=== PATIENT | female | born 1980 | race Two or more races ===

== ENCOUNTER 2019-08-29 13:09 | Emergency (ER) | payer MEDICAID, OTHER ==
[~2019-08-29] VITALS: Ht 170.2 cm; Wt 122.9 kg
[2019-08-29 16:05] VITALS: BP 128/82
[2019-08-29] MEDS ORDERED: ACETAMINOPHEN/CODEINE#3 (300/30mg) TAB PO ONE (17:45)
== END 2019-08-29 18:00 | disposition home or self-care (01) ==
LOC: ER 13:16
DX: M25.462 Effusion, left knee (principal); E11.9 Type 2 diabetes mellitus without complications; I10 Essential (primary) hypertension; R51 Headache; Z98.51 Tubal ligation status
CPT/HCPCS: 73562

== ENCOUNTER 2022-01-30 04:54 | Emergency (ER) | payer MEDICAID ==
[~2022-01-30] VITALS: Ht 170.2 cm; Wt 86.4 kg
[2022-01-30] MEDS ORDERED: LORazepam 0.5 MG TAB PO ONE (05:45)
[2022-01-30 06:21] LABS: Basophils # (auto) 0 10 ^3/uL (0-0.2); Basophils % (auto) 0.5 % (0.0-2.0); Eosinophils # (auto) 0.1 10 ^3/uL (0-0.8); Hematocrit 43.7 % (36.0-46.0); Hemoglobin 14.7 g/dL (12.2-16.2); Lymphocytes # (auto) 2.5 10 ^3/uL (0.4-5.4); Lymphocytes % (auto) 34.2 % (10.0-50.0); Mean Corpuscular Hemoglobin 28.2 pg (28.0-32.0); Mean Corpuscular Hgb Conc. 33.6 g/dL (32.0-36.0); Monocytes # (auto) 0.3 10 ^3/uL (0-1.3); Monocytes % (auto) 3.5 % (0.0-12.0); Neutrophils # (auto) 4.4 10 ^3/uL (1.6-8.6); Neutrophils % (auto) 60.8 % (37.0-80.0); Red Cell Distribution Width 13.7 % (11.8-14.3); White Blood Cell 7.3 10^3/uL (4.4-10.8)
[2022-01-30 06:36] LABS: Albumin 2.8 g/dL (3.4-5.0); Calcium 8.8 mg/dL (8.5-10.1); Potassium 3.3 mmol/L (3.5-5.1)
[2022-01-30 06:41] LABS: BUN/Creatinine Ratio 16.9; Bilirubin, Total 0.4 mg/dL (0.2-1.0); Total Protein 6.8 g/dL (6.4-8.2)
[2022-01-30] MEDS ORDERED: HYDROmorphone HCL 2 MG/ML VL/or syr IV ONE (06:45)
[2022-01-30] MEDS ORDERED: PANTOPRAZOLE 40 MG TAB PO ONE (06:45)
[2022-01-30] MEDS ORDERED: PROCHLORPERAZINE EDISYLATE 5 MG/ML 2ML VIAL IV ONE (06:45)
[2022-01-30] MEDS ORDERED: DONNATAL 5ml ORAL Elix (BELLADONNA ALK-PHENOBARB) PO ONE (06:45)
[2022-01-30] MEDS ORDERED: ALUM & MAG HYDROX-SIMETH LIQ(MAALOX) 30 ML PO ONE (06:45)
[2022-01-30] MEDS ORDERED: IOHEXOL 300 MG/ML 100ML BOTTLE IJ ONE (06:55)
[2022-01-30 13:31] LABS: Urine Bacteria MANY /hpf (None Seen); Urine Blood Negative /uL (Negative); Urine WBC 65 /hpf (0 - 5)
[2022-01-30] MEDS ORDERED: INSULIN LISPRO (HUMAN) 100 UNITS/ML ML SC ONE (14:00)
[2022-01-30] MEDS ORDERED: cefTRIAXone 1GM/50ML D5W 50 ML IV ONE (14:00)
[2022-01-30] MEDS ORDERED: FLEET MINERAL OIL ENEMA 133 ML PR ONE (14:00)
[2022-01-30] MEDS ORDERED: POTASSIUM EFFERVESENT TAB 25 MEQ PO ONE (14:00)
[2022-01-30] MEDS ORDERED: SODIUM CHLORIDE 0.9% 1,000 ML IVB ONE (14:30)
[2022-01-30] MEDS ORDERED: GLIM1TAB PO (17:14)
[2022-01-30] MEDS ORDERED: METF-371 PO (17:14)
[2022-01-30] MEDS ORDERED: SENN1TAB88 PO (17:14)
[2022-01-30] MEDS ORDERED: SULF400T11 PO (17:14)
[2022-01-30] MEDS ORDERED: OLME20TA53 PO (17:14)
[2022-01-30 18:09] VITALS: BP 91/49
== END 2022-01-30 18:05 | disposition home or self-care (01) ==
LOC: EDBD 04:54 → ER 04:54
DX: N39.0 Urinary tract infection, site not specified (principal); K59.01 Slow transit constipation; E87.6 Hypokalemia; E11.65 Type 2 diabetes mellitus with hyperglycemia; E44.0 Moderate protein-calorie malnutrition; I10 Essential (primary) hypertension; Z68.29 Body mass index [BMI] 29.0-29.9, adult; Z98.51 Tubal ligation status
CPT/HCPCS: 36415; 71045; 74177; 80053; 81001; 81025; 83690; 83735; 84443; 84702; 85025; 96365; 96366; 96372; 96375; 99285; J0696; J0780; J1170; J1815; Q9967

== ENCOUNTER 2022-02-04 05:18 | Inpatient (IN) | payer MEDICAID ==
[2022-02-04] VITALS (8 sets, daily range): BP systolic 141–184; BP diastolic 86–100
[~2022-02-04] VITALS: Ht 167.6 cm; Wt 100.0 kg
[~2022-02-04 05:18] MED LIST: GLIM1TAB PO; METF-371 PO; OLME20TA53 PO; SENN1TAB88 PO; SULF400T11 PO
[2022-02-04 07:06] LABS: Albumin 2.4 g/dL (3.4-5.0); BUN/Creatinine Ratio 15.3; Basophils # (auto) 0 10 ^3/uL (0-0.2); Basophils % (auto) 0.3 % (0.0-2.0); Bilirubin, Total 0.5 mg/dL (0.2-1.0); Calcium 9.4 mg/dL (8.5-10.1); Eosinophils # (auto) 0.1 10 ^3/uL (0-0.8); Eosinophils % (auto) 0.4 % (0.0-7.0); Hemoglobin 14.8 g/dL (12.2-16.2); Lymphocytes % (auto) 7.5 % (10.0-50.0); Mean Corpuscular Hemoglobin 29.2 pg (28.0-32.0); Mean Corpuscular Hgb Conc. 34.4 g/dL (32.0-36.0); Mean Corpuscular Volume 84.9 fL (80.0-100.0); Monocytes # (auto) 0.9 10 ^3/uL (0-1.3); Monocytes % (auto) 6.2 % (0.0-12.0); Neutrophils % (auto) 85.6 % (37.0-80.0); Red Blood Cells 5.07 10^6/uL (4.0-5.20); Red Cell Distribution Width 14.1 % (11.8-14.3); Total Protein 7.8 g/dL (6.4-8.2)
[2022-02-04 08:42] LABS: Urine Bacteria NONE SEEN /hpf (None Seen); Urine Blood 3+ /uL (Negative); Urine Hyaline Cast MOD /lpf (0 - 2); Urine Specific Gravity 1.032 (1.001-1.035); Urine WBC 12 /hpf (0 - 5); Urine WBC Clumps PRESENT /hpf (None Seen)
[2022-02-04] MEDS ORDERED: SODIUM CHLORIDE 0.9% 1,000 ML IV ONE ×2 (10:45→13:45)
[2022-02-04] MEDS ORDERED: PIPERACILLIN-TAZOB 3.375GM 100 ML IV ONE (10:45)
[2022-02-04] MEDS ORDERED: ONDANSETRON HCL 4 MG/2 ML VIAL IV ONE (10:45)
[2022-02-04] MEDS ORDERED: metroNIDAZOLE 500MG/100ML 100 ML IV ONE (11:45)
[2022-02-04] MEDS ORDERED: cefTRIAXone 1GM/50ML D5W 50 ML IV ONE (11:45)
[2022-02-04] MEDS ORDERED: PANTOPRAZOLE 40 MG/10 ML VIAL INJ IV ONE (12:00)
[2022-02-04] MEDS: SODIUM CHLORIDE 0.9% 1,000 ML IV SCH ×4 (12:21→20:45)
[2022-02-04 12:59] LABS: INR 0.99 (0.9-1.15)
[2022-02-04 13:03] LABS: Cholesterol 175 mg/dL (< 200); HDL Cholesterol 30 mg/dL (40-59); LDL Cholesterol 123 mg/dL (< 100); Triglycerides 168 mg/dL (< 150)
[2022-02-04] MEDS ORDERED: InsuLIN REG 1unit/0.01ml Soln (100units/ml) IV ONE ×2 (13:45→15:30)
[2022-02-04] MEDS: metroNIDAZOLE 500MG/100ML 100 ML IV SCH ×2 (14:00→22:24)
[2022-02-04] MEDS ORDERED: GASTROGRAFIN 120 ML SOL ONE (14:19)
[2022-02-04 15:06] LABS: Albumin 2.3 g/dL (3.4-5.0); Calcium 9.2 mg/dL (8.5-10.1); Potassium 3.7 mmol/L (3.5-5.1)
[2022-02-04 15:09] LABS: BUN/Creatinine Ratio 18.5; Bilirubin, Total 0.4 mg/dL (0.2-1.0); Total Protein 7.4 g/dL (6.4-8.2)
[2022-02-04] MEDS: MORPHINE SULFATE INJ 2 MG/ml SYRG IV PRN ×2 (17:38→21:16)
[2022-02-04] MEDS ORDERED: DEXTROSE (50%) 50ML SYRG IV PRN ×2 (18:00→18:45)
[2022-02-04] MEDS ORDERED: ACCU-CHEK COMFORT CURVE STRIP VI SCH (18:00)
[2022-02-04] MEDS: InsuLIN REG 1unit/0.01ml Soln (100units/ml) SC SCH (18:22)
[2022-02-04] MEDS ORDERED: InsuLIN R (HUMAN) 100 UNITS in SODIUM CHL 0.9% 99 ML IV SCH (18:45)
[2022-02-04] MEDS: SOD CHL 0.9%/ KCL 20MEQ 1,000 ML IV SCH (18:45)
[2022-02-04] MEDS ORDERED: MAGNESIUM SULFATE 1GM/100ML 200 ML IV ONE (18:45)
[2022-02-04] MEDS ORDERED: INSULIN LANTUS (GLARGINE) 1 /0.01ml (100units/ml) SC ONE (18:45)
[2022-02-04] MEDS ORDERED: POTASSIUM CHL 20MEQ/100ML 200 ML IV PRN (18:45)
[2022-02-04] MEDS ORDERED: POTASSIUM CHL 20MEQ/100ML 100 ML IV PRN (18:45)
[2022-02-04] MEDS: hydrALAZINE HCL 20 MG/ML VL IV PRN (19:15)
[2022-02-04] MEDS: ACCU-CHEK COMFORT CURVE STRIP VI SCH ×3 (19:30→22:30)
[2022-02-04 20:03] LABS: Magnesium 1.8 mg/dL (1.6-2.6); Phosphorus 3.6 mg/dL (2.5-4.90)
[2022-02-04 20:04] LABS: BUN/Creatinine Ratio 21.6; Calcium 9.5 mg/dL (8.5-10.1); Potassium 3.7 mmol/L (3.5-5.1)
[2022-02-04] MEDS: ONDANSETRON HCL 4 MG/2 ML VIAL IV PRN (22:25)
[2022-02-04] MEDS ORDERED: SODIUM CHLORIDE 0.9% 1,000 ML IV SCH (22:45)
[2022-02-05] VITALS (47 sets, daily range): BP systolic 116–183; BP diastolic 73–121
[2022-02-05] MEDS: D5W/SOD CHL 0.45%/KCL 20MEQ 1,000 ML IV SCH ×10 (00:28→23:20)
[2022-02-05] MEDS: SODIUM CHLORIDE 0.9% 1,000 ML IV SCH ×7 (00:45→19:16)
[2022-02-05] MEDS: hydrALAZINE HCL 20 MG/ML VL IV PRN ×2 (00:45→12:02)
[2022-02-05] MEDS: SOD CHL 0.9%/ KCL 20MEQ 1,000 ML IV SCH ×3 (01:25→16:45)
[2022-02-05] MEDS: ACCU-CHEK COMFORT CURVE STRIP VI SCH ×15 (01:30→22:30)
[2022-02-05 01:38] LABS: Calcium 9.1 mg/dL (8.5-10.1); Potassium 3.5 mmol/L (3.5-5.1)
[2022-02-05] MEDS: MORPHINE SULFATE INJ 2 MG/ml SYRG IV PRN ×5 (02:07→20:08)
[2022-02-05 04:51] LABS: Basophils # (auto) 0.1 10 ^3/uL (0-0.2); Basophils % (auto) 0.7 % (0.0-2.0); Eosinophils # (auto) 0.1 10 ^3/uL (0-0.8); Eosinophils % (auto) 0.4 % (0.0-7.0); Hematocrit 43.6 % (36.0-46.0); Hemoglobin 14.2 g/dL (12.2-16.2); Lymphocytes # (auto) 1.3 10 ^3/uL (0.4-5.4); Lymphocytes % (auto) 9.2 % (10.0-50.0); Mean Corpuscular Hemoglobin 27.9 pg (28.0-32.0); Mean Corpuscular Hgb Conc. 32.6 g/dL (32.0-36.0); Mean Corpuscular Volume 85.5 fL (80.0-100.0); Monocytes # (auto) 0.8 10 ^3/uL (0-1.3); Monocytes % (auto) 5.6 % (0.0-12.0); Neutrophils # (auto) 11.7 10 ^3/uL (1.6-8.6); Neutrophils % (auto) 84.1 % (37.0-80.0); Red Blood Cells 5.09 10^6/uL (4.0-5.20); Red Cell Distribution Width 14.3 % (11.8-14.3); White Blood Cell 13.9 10^3/uL (4.4-10.8)
[2022-02-05 05:05] LABS: Albumin 2.3 g/dL (3.4-5.0); Potassium 3.8 mmol/L (3.5-5.1)
[2022-02-05 05:10] LABS: BUN/Creatinine Ratio 21.3; Bilirubin, Total 0.4 mg/dL (0.2-1.0); Total Protein 7.3 g/dL (6.4-8.2)
[2022-02-05] MEDS: InsuLIN REG 1unit/0.01ml Soln (100units/ml) SC SCH ×4 (06:00→15:59)
[2022-02-05] MEDS: metroNIDAZOLE 500MG/100ML 100 ML IV SCH ×3 (06:00→21:23)
[2022-02-05] MEDS: ONDANSETRON HCL 4 MG/2 ML VIAL IV PRN (07:30)
[2022-02-05] MEDS ORDERED: cefTRIAXone 1GM/50ML D5W 50 ML IV SCH (09:00)
[2022-02-05] MEDS: PANTOPRAZOLE 40 MG/10 ML VIAL INJ IV SCH (09:34)
[2022-02-05] MEDS ORDERED: SUCCINYLCHOLINE CHLORIDE 20 MG/ML 10ML VIAL IV ONE (10:18)
[2022-02-05] MEDS ORDERED: ROCURONIUM 10MG/ML 10ML VIAL IV ONE (10:18)
[2022-02-05] MEDS ORDERED: BUPIVACAINE 0.5% P/F INJ 10 ML VIAL ONE (10:20)
[2022-02-05] MEDS ORDERED: EPINEPHrine HCL 1 MG/1 ML AMP ONE (10:21)
[2022-02-05] MEDS ORDERED: ONDANSETRON HCL 4 MG/2 ML VIAL ONE (10:22)
[2022-02-05] MEDS ORDERED: DexAMETHasone SOD PHOS 10MG/1ML VIAL INJ ONE (10:22)
[2022-02-05] MEDS ORDERED: fentaNYL CITRATE 100 MCG/2 ML VL ONE (10:22)
[2022-02-05] MEDS: INSULIN LANTUS (GLARGINE) 1 /0.01ml (100units/ml) SC SCH (10:22)
[2022-02-05] MEDS ORDERED: GLYCOPYRROLATE 0.2 MG/ML 1ML VIAL ONE (10:22)
[2022-02-05] MEDS ORDERED: SODIUM CHLORIDE LOCK 10 ML ONE (10:22)
[2022-02-05] MEDS ORDERED: HYDROmorphone HCL 2 MG/ML VL/or syr ONE ×2 (10:22→15:13)
[2022-02-05] MEDS ORDERED: NEOSTIGMINE 1 MG/ML INJ (10mg/10ML VIAL) ONE (10:22)
[2022-02-05] MEDS ORDERED: MIDAZOLAM HCL 2MG/2ML 2ml VIAL (1mg/ml) ONE (10:22)
[2022-02-05] MEDS ORDERED: POVIDONE IODINE 10 % TOPICAL OINT 30GM TOP ONE ×2 (10:32→10:33)
[2022-02-05 12:07] LABS: Calcium 9.5 mg/dL (8.5-10.1); INR 1.03 (0.9-1.15); Partial Thromboplastin Time 26.8 sec (24.6-33.4); Potassium 3.3 mmol/L (3.5-5.1)
[2022-02-05 12:10] LABS: BUN/Creatinine Ratio 22.7
[2022-02-05] MEDS ORDERED: MORPHINE SULFATE 4 MG/ML SYR/VIAL IV PRN (12:15)
[2022-02-05] MEDS ORDERED: HYDROmorphone HCL 2 MG/ML VL/or syr IV PRN (12:15)
[2022-02-05] MEDS ORDERED: ACCU-CHEK COMFORT CURVE STRIP VI ONE (12:15)
[2022-02-05] MEDS ORDERED: METOCLOPRAMIDE HCL 5MG/ml INJ 2ml VIAL IV PRN (12:15)
[2022-02-05] MEDS ORDERED: ceFAZolin 1GM/50ML 100 ML IV ONE (12:25)
[2022-02-05] MEDS ORDERED: SUGAMMADEX 200mg/2ml Vial (100MG/ML) IV ONE (14:08)
[2022-02-05] MEDS ORDERED: HYDROmorphone HCL 2 MG/ML VL/or syr IV ONE ×2 (15:10→15:28)
[2022-02-05] MEDS: PIPERACILLIN-TAZOB 3.375GM 100 ML IV SCH ×2 (16:29→17:19)
[2022-02-05 17:16] LABS: BUN/Creatinine Ratio 18.6; Calcium 8.6 mg/dL (8.5-10.1); Magnesium 1.7 mg/dL (1.6-2.6); Phosphorus 2.7 mg/dL (2.5-4.90); Potassium 3.8 mmol/L (3.5-5.1)
[2022-02-05] MEDS: MAGNESIUM SULFATE 1GM/100ML 100 ML IV SCH ×2 (18:47→20:16)
[2022-02-05] MEDS ORDERED: DEXTROSE (50%) 50ML SYRG IV PRN (22:15)
[2022-02-05] MEDS ORDERED: InsuLIN R (HUMAN) 100 UNITS in SODIUM CHL 0.9% 99 ML IV SCH (22:30)
[2022-02-06] VITALS (47 sets, daily range): BP systolic 107–178; BP diastolic 73–100
[2022-02-06] MEDS: MORPHINE SULFATE 4 MG/ML SYR/VIAL IV PRN ×5 (00:02→22:38)
[2022-02-06 00:53] LABS: Anion Gap 10 (5-15); BUN/Creatinine Ratio 17.2; Blood Urea Nitrogen 10 mg/dL (7-18); Calcium 8.2 mg/dL (8.5-10.1); Carbon Dioxide 16 mmol/L (21-32); Chloride 114 mmol/L (98-107); GFR African American 149 mL/min; GFR Non-African American 123 mL/min; Glucose 251 mg/dL (74-106); Magnesium 2.1 mg/dL (1.6-2.6); Phosphorus 2.7 mg/dL (2.5-4.90); Potassium 3.6 mmol/L (3.5-5.1); Sodium 140 mmol/L (136-145)
[2022-02-06] MEDS: ACCU-CHEK COMFORT CURVE STRIP VI SCH ×16 (01:29→22:48)
[2022-02-06] MEDS: PIPERACILLIN-TAZOB 3.375GM 100 ML IV SCH ×4 (01:30→17:21)
[2022-02-06] MEDS: SOD CHL 0.9%/ KCL 20MEQ 1,000 ML IV SCH ×4 (01:31→07:45)
[2022-02-06] MEDS: D5W/SOD CHL 0.45%/KCL 20MEQ 1,000 ML IV SCH ×8 (01:36→22:00)
[2022-02-06] MEDS: SODIUM CHLORIDE 0.9% 1,000 ML IV SCH ×7 (03:25→23:25)
[2022-02-06] MEDS: metroNIDAZOLE 500MG/100ML 100 ML IV SCH ×3 (05:43→21:59)
[2022-02-06] MEDS: InsuLIN REG 1unit/0.01ml Soln (100units/ml) SC SCH ×5 (05:44→14:43)
[2022-02-06 06:45] LABS: BUN/Creatinine Ratio 17.2; Calcium 8.3 mg/dL (8.5-10.1); Magnesium 1.9 mg/dL (1.6-2.6); Potassium 3.4 mmol/L (3.5-5.1)
[2022-02-06 07:04] LABS: Phosphorus 2.8 mg/dL (2.5-4.90)
[2022-02-06] MEDS: PANTOPRAZOLE 40 MG/10 ML VIAL INJ IV SCH (07:59)
[2022-02-06] MEDS: INSULIN LANTUS (GLARGINE) 1 /0.01ml (100units/ml) SC SCH (10:33)
[2022-02-06 10:46] LABS: BUN/Creatinine Ratio 15.5; Calcium 8.6 mg/dL (8.5-10.1); Phosphorus 2.8 mg/dL (2.5-4.90); Potassium 3.5 mmol/L (3.5-5.1)
[2022-02-06] MEDS: ONDANSETRON HCL 4 MG/2 ML VIAL IV PRN (12:27)
[2022-02-06] MEDS: MAGNESIUM SULFATE 1GM/100ML 100 ML IV SCH ×2 (12:56→14:07)
[2022-02-06] MEDS: POTASSIUM CHL 20MEQ/100ML 100 ML IV SCH ×2 (13:03→14:23)
[2022-02-06] MEDS ORDERED: InsuLIN R (HUMAN) 100 UNITS in SODIUM CHL 0.9% 99 ML IV SCH (14:45)
[2022-02-06 20:30] LABS: Calcium 8.5 mg/dL (8.5-10.1); Magnesium 2.2 mg/dL (1.6-2.6); Potassium 3.6 mmol/L (3.5-5.1)
[2022-02-06 21:28] LABS: Phosphorus 2.5 mg/dL (2.5-4.90)
[2022-02-07] VITALS (27 sets, daily range): BP systolic 126–168; BP diastolic 81–112
[2022-02-07] MEDS: SOD CHL 0.9%/ KCL 20MEQ 1,000 ML IV SCH ×2 (00:05→06:45)
[2022-02-07] MEDS: D5W/SOD CHL 0.45%/KCL 20MEQ 1,000 ML IV SCH ×5 (00:05→15:59)
[2022-02-07] MEDS: PIPERACILLIN-TAZOB 3.375GM 100 ML IV SCH ×4 (00:15→17:48)
[2022-02-07] MEDS: ACCU-CHEK COMFORT CURVE STRIP VI SCH ×11 (00:18→17:48)
[2022-02-07] MEDS: ONDANSETRON HCL 4 MG/2 ML VIAL IV PRN ×2 (01:13→09:26)
[2022-02-07 01:26] LABS: BUN/Creatinine Ratio 12.2; Calcium 8.4 mg/dL (8.5-10.1); Phosphorus 2.3 mg/dL (2.5-4.90); Potassium 3.4 mmol/L (3.5-5.1)
[2022-02-07] MEDS: SODIUM CHLORIDE 0.9% 1,000 ML IV SCH ×2 (03:45→06:05)
[2022-02-07 04:40] LABS: Calcium 8.1 mg/dL (8.5-10.1); Potassium 3.3 mmol/L (3.5-5.1)
[2022-02-07 04:42] LABS: BUN/Creatinine Ratio 9.6; Phosphorus 2.5 mg/dL (2.5-4.90)
[2022-02-07] MEDS: metroNIDAZOLE 500MG/100ML 100 ML IV SCH ×3 (05:43→22:30)
[2022-02-07] MEDS: MORPHINE SULFATE 4 MG/ML SYR/VIAL IV PRN (05:54)
[2022-02-07] MEDS: InsuLIN REG 1unit/0.01ml Soln (100units/ml) SC SCH ×3 (06:00→18:13)
[2022-02-07] MEDS: HYDROmorphone HCL 2 MG/ML VL/or syr IV PRN ×4 (09:26→22:28)
[2022-02-07] MEDS: PANTOPRAZOLE 40 MG/10 ML VIAL INJ IV SCH (09:26)
[2022-02-07] MEDS ORDERED: InsuLIN R (HUMAN) 100 UNITS in SODIUM CHL 0.9% 99 ML IV SCH (09:30)
[2022-02-07] MEDS: INSULIN LANTUS (GLARGINE) 1 /0.01ml (100units/ml) SC SCH (12:02)
[2022-02-07 12:35] LABS: Calcium 8.3 mg/dL (8.5-10.1); Potassium 3.3 mmol/L (3.5-5.1)
[2022-02-07 12:38] LABS: BUN/Creatinine Ratio 7.8; Magnesium 1.9 mg/dL (1.6-2.6); Phosphorus 2.8 mg/dL (2.5-4.90)
[2022-02-07] MEDS ORDERED: DEXTROSE (50%) 50ML SYRG IV PRN (15:45)
[2022-02-07] MEDS: hydrALAZINE HCL 20 MG/ML VL IV PRN (20:47)
[2022-02-07 22:39] LABS: Calcium 8.2 mg/dL (8.5-10.1); Potassium 3.4 mmol/L (3.5-5.1)
[2022-02-07 22:42] LABS: BUN/Creatinine Ratio 8.7
[2022-02-08] VITALS (22 sets, daily range): BP systolic 126–151; BP diastolic 88–114
[2022-02-08] MEDS: PIPERACILLIN-TAZOB 3.375GM 100 ML IV SCH ×4 (01:00→18:48)
[2022-02-08] MEDS: ACCU-CHEK COMFORT CURVE STRIP VI SCH ×4 (01:00→18:48)
[2022-02-08] MEDS: InsuLIN REG 1unit/0.01ml Soln (100units/ml) SC SCH ×4 (01:04→18:55)
[2022-02-08] MEDS: HYDROmorphone HCL 2 MG/ML VL/or syr IV PRN ×5 (02:00→20:03)
[2022-02-08 04:15] LABS: Albumin 1.7 g/dL (3.4-5.0); Calcium 8.2 mg/dL (8.5-10.1); Magnesium 1.7 mg/dL (1.6-2.6); Potassium 3.4 mmol/L (3.5-5.1)
[2022-02-08 04:17] LABS: Basophils # (auto) 0 10 ^3/uL (0-0.2); Basophils % (auto) 0.4 % (0.0-2.0); Eosinophils # (auto) 0 10 ^3/uL (0-0.8); Eosinophils % (auto) 0.4 % (0.0-7.0); Hematocrit 37.2 % (36.0-46.0); Hemoglobin 12.7 g/dL (12.2-16.2); Lymphocytes # (auto) 1.5 10 ^3/uL (0.4-5.4); Lymphocytes % (auto) 14.4 % (10.0-50.0); Mean Corpuscular Hemoglobin 28.7 pg (28.0-32.0); Mean Corpuscular Hgb Conc. 34.1 g/dL (32.0-36.0); Mean Corpuscular Volume 84.1 fL (80.0-100.0); Monocytes # (auto) 0.5 10 ^3/uL (0-1.3); Monocytes % (auto) 4.9 % (0.0-12.0); Neutrophils # (auto) 8.4 10 ^3/uL (1.6-8.6); Neutrophils % (auto) 79.9 % (37.0-80.0); Nucleated Red Blood Cells % 0.1 %; Red Blood Cells 4.42 10^6/uL (4.0-5.20); Red Cell Distribution Width 14.1 % (11.8-14.3); White Blood Cell 10.5 10^3/uL (4.4-10.8)
[2022-02-08 04:18] LABS: BUN/Creatinine Ratio 10.4; Bilirubin, Total 0.2 mg/dL (0.2-1.0); Total Protein 6.1 g/dL (6.4-8.2)
[2022-02-08] MEDS: metroNIDAZOLE 500MG/100ML 100 ML IV SCH ×3 (06:04→22:01)
[2022-02-08] MEDS: PANTOPRAZOLE 40 MG/10 ML VIAL INJ IV SCH (10:18)
[2022-02-08] MEDS: D5W/SOD CHL 0.45%/KCL 20MEQ 1,000 ML IV SCH ×3 (10:24→22:01)
[2022-02-08] MEDS: POTASSIUM CHL 20MEQ/100ML 100 ML IV SCH ×2 (12:27→14:08)
[2022-02-09] MEDS: ACCU-CHEK COMFORT CURVE STRIP VI SCH ×4 (00:29→16:42)
[2022-02-09] MEDS: PIPERACILLIN-TAZOB 3.375GM 100 ML IV SCH ×4 (00:29→17:58)
[2022-02-09] MEDS: hydrALAZINE HCL 20 MG/ML VL IV PRN ×2 (00:32→12:42)
[2022-02-09] MEDS: InsuLIN REG 1unit/0.01ml Soln (100units/ml) SC SCH ×4 (00:34→17:11)
[2022-02-09] MEDS: HYDROmorphone HCL 2 MG/ML VL/or syr IV PRN ×5 (00:45→20:45)
[2022-02-09 05:00] VITALS: BP 139/102
[2022-02-09] MEDS: metroNIDAZOLE 500MG/100ML 100 ML IV SCH ×3 (05:45→21:58)
[2022-02-09] MEDS: D5W/SOD CHL 0.45%/KCL 20MEQ 1,000 ML IV SCH ×2 (07:45→16:41)
[2022-02-09 07:57] LABS: Basophils # (auto) 0 10 ^3/uL (0-0.2); Basophils % (auto) 0.4 % (0.0-2.0); Eosinophils # (auto) 0 10 ^3/uL (0-0.8); Eosinophils % (auto) 0.3 % (0.0-7.0); Hematocrit 35.7 % (36.0-46.0); Lymphocytes # (auto) 1.3 10 ^3/uL (0.4-5.4); Lymphocytes % (auto) 15.2 % (10.0-50.0); Mean Corpuscular Hemoglobin 28.3 pg (28.0-32.0); Mean Corpuscular Hgb Conc. 33.6 g/dL (32.0-36.0); Mean Corpuscular Volume 84.1 fL (80.0-100.0); Monocytes # (auto) 0.5 10 ^3/uL (0-1.3); Monocytes % (auto) 5.6 % (0.0-12.0); Neutrophils # (auto) 6.5 10 ^3/uL (1.6-8.6); Neutrophils % (auto) 78.5 % (37.0-80.0); Nucleated Red Blood Cells % 0.1 %; Red Blood Cells 4.25 10^6/uL (4.0-5.20); Red Cell Distribution Width 13.9 % (11.8-14.3); White Blood Cell 8.3 10^3/uL (4.4-10.8)
[2022-02-09 08:04] LABS: BUN/Creatinine Ratio 8.2; Calcium 8.1 mg/dL (8.5-10.1); Magnesium 1.8 mg/dL (1.6-2.6); Phosphorus 2.6 mg/dL (2.5-4.90); Potassium 3.6 mmol/L (3.5-5.1)
[2022-02-09 09:00] VITALS: BP 159/98
[2022-02-09] MEDS: PANTOPRAZOLE 40 MG/10 ML VIAL INJ IV SCH (09:48)
[2022-02-09 13:00] VITALS: BP 150/104
[2022-02-09] MEDS: ENOXAPARIN SOD 40 MG/0.4 ML SYRINGE SC SCH (16:30)
[2022-02-09 17:11] VITALS: BP 135/94
[2022-02-09 22:00] VITALS: BP 149/98
[2022-02-10] MEDS: ACCU-CHEK COMFORT CURVE STRIP VI SCH ×5 (00:13→23:58)
[2022-02-10] MEDS: PIPERACILLIN-TAZOB 3.375GM 100 ML IV SCH ×5 (00:13→23:58)
[2022-02-10] MEDS: InsuLIN REG 1unit/0.01ml Soln (100units/ml) SC SCH ×5 (00:15→23:59)
[2022-02-10] MEDS: HYDROmorphone HCL 2 MG/ML VL/or syr IV PRN ×4 (01:11→21:28)
[2022-02-10] MEDS: D5W/SOD CHL 0.45%/KCL 20MEQ 1,000 ML IV SCH ×3 (03:45→23:58)
[2022-02-10 04:51] VITALS: BP 144/106
[2022-02-10] MEDS: metroNIDAZOLE 500MG/100ML 100 ML IV SCH ×3 (05:16→21:27)
[2022-02-10 06:42] LABS: Basophils # (auto) 0.1 10 ^3/uL (0-0.2); Basophils % (auto) 1.5 % (0.0-2.0); Eosinophils # (auto) 0.1 10 ^3/uL (0-0.8); Eosinophils % (auto) 0.7 % (0.0-7.0); Hematocrit 35.1 % (36.0-46.0); Hemoglobin 11.7 g/dL (12.2-16.2); Lymphocytes # (auto) 1.5 10 ^3/uL (0.4-5.4); Mean Corpuscular Hgb Conc. 33.5 g/dL (32.0-36.0); Mean Corpuscular Volume 83.7 fL (80.0-100.0); Monocytes # (auto) 0.6 10 ^3/uL (0-1.3); Monocytes % (auto) 7.7 % (0.0-12.0); Neutrophils # (auto) 5.4 10 ^3/uL (1.6-8.6); Neutrophils % (auto) 71.1 % (37.0-80.0); Red Blood Cells 4.19 10^6/uL (4.0-5.20); Red Cell Distribution Width 13.7 % (11.8-14.3); White Blood Cell 7.7 10^3/uL (4.4-10.8)
[2022-02-10 06:56] LABS: Potassium 3.6 mmol/L (3.5-5.1)
[2022-02-10 07:01] LABS: BUN/Creatinine Ratio 7.9; Calcium 8.2 mg/dL (8.5-10.1); Magnesium 1.3 mg/dL (1.6-2.6)
[2022-02-10 09:29] VITALS: BP 153/110
[2022-02-10] MEDS: PANTOPRAZOLE 40 MG/10 ML VIAL INJ IV SCH (10:10)
[2022-02-10] MEDS: ENOXAPARIN SOD 40 MG/0.4 ML SYRINGE SC SCH (10:10)
[2022-02-10] MEDS: hydrALAZINE HCL 20 MG/ML VL IV PRN (10:28)
[2022-02-10 12:30] VITALS: BP 139/94
[2022-02-10] MEDS: MAGNESIUM SULFATE 1GM/100ML 100 ML IV SCH ×3 (14:13→16:20)
[2022-02-10] MEDS: HYDROcodone-ACET 5/325MG TAB PO PRN (16:07)
[2022-02-10 22:00] VITALS: BP 137/96
[2022-02-11] MEDS: metroNIDAZOLE 500MG/100ML 100 ML IV SCH ×4 (01:30→23:15)
[2022-02-11] MEDS: HYDROmorphone HCL 2 MG/ML VL/or syr IV PRN ×4 (04:28→20:55)
[2022-02-11 05:00] VITALS: BP 145/100
[2022-02-11] MEDS: ACCU-CHEK COMFORT CURVE STRIP VI SCH ×3 (06:00→18:59)
[2022-02-11] MEDS: InsuLIN REG 1unit/0.01ml Soln (100units/ml) SC SCH ×4 (06:30→19:21)
[2022-02-11] MEDS: PIPERACILLIN-TAZOB 3.375GM 100 ML IV SCH ×3 (06:30→19:05)
[2022-02-11] MEDS: PANTOPRAZOLE 40 MG/10 ML VIAL INJ IV SCH (09:32)
[2022-02-11] MEDS: ENOXAPARIN SOD 40 MG/0.4 ML SYRINGE SC SCH (09:32)
[2022-02-11] MEDS: D5W/SOD CHL 0.45%/KCL 20MEQ 1,000 ML IV SCH ×2 (09:45→19:48)
[2022-02-11 10:40] VITALS: BP 145/106
[2022-02-11] MEDS ORDERED: GASTROGRAFIN 120 ML SOL ONE (12:07)
[2022-02-11 14:29] VITALS: BP 153/103
[2022-02-11] MEDS ORDERED: BLOO1KIT60 XX (14:37)
[2022-02-11] MEDS ORDERED: INSLANTI SC (14:37)
[2022-02-11] MEDS ORDERED: AMOX-277 PO (14:37)
[2022-02-11] MEDS ORDERED: HYDR1TAB97 PO (14:39)
[2022-02-11] MEDS ORDERED: ONDA-144 PO (14:39)
[2022-02-11] MEDS: ONDANSETRON HCL 4 MG/2 ML VIAL IV PRN (16:15)
[2022-02-11 17:07] VITALS: BP 142/110
[2022-02-11 22:00] VITALS: BP 164/106
[2022-02-12] MEDS: ACCU-CHEK COMFORT CURVE STRIP VI SCH ×5 (00:42→23:13)
[2022-02-12] MEDS: PIPERACILLIN-TAZOB 3.375GM 100 ML IV SCH ×5 (00:42→23:14)
[2022-02-12] MEDS: InsuLIN REG 1unit/0.01ml Soln (100units/ml) SC SCH ×5 (01:11→23:04)
[2022-02-12] MEDS: HYDROcodone-ACET 5/325MG TAB PO PRN ×4 (01:12→22:51)
[2022-02-12] MEDS: HYDROmorphone HCL 2 MG/ML VL/or syr IV PRN ×3 (03:20→20:37)
[2022-02-12 05:00] VITALS: BP 166/109
[2022-02-12 05:23] LABS: Basophils # (auto) 0 10 ^3/uL (0-0.2); Basophils % (auto) 0.6 % (0.0-2.0); Eosinophils # (auto) 0 10 ^3/uL (0-0.8); Eosinophils % (auto) 0.5 % (0.0-7.0); Hemoglobin 11.8 g/dL (12.2-16.2); Lymphocytes # (auto) 1.4 10 ^3/uL (0.4-5.4); Lymphocytes % (auto) 17.9 % (10.0-50.0); Mean Corpuscular Hemoglobin 28.1 pg (28.0-32.0); Mean Corpuscular Hgb Conc. 33.6 g/dL (32.0-36.0); Mean Corpuscular Volume 83.7 fL (80.0-100.0); Monocytes # (auto) 0.5 10 ^3/uL (0-1.3); Neutrophils # (auto) 5.7 10 ^3/uL (1.6-8.6); Nucleated Red Blood Cells % 0.1 %; Red Blood Cells 4.18 10^6/uL (4.0-5.20); Red Cell Distribution Width 13.8 % (11.8-14.3); White Blood Cell 7.7 10^3/uL (4.4-10.8)
[2022-02-12 05:41] LABS: Calcium 8.1 mg/dL (8.5-10.1); Magnesium 1.9 mg/dL (1.6-2.6); Potassium 3.6 mmol/L (3.5-5.1)
[2022-02-12 05:42] LABS: BUN/Creatinine Ratio 4.4; Phosphorus 3.1 mg/dL (2.5-4.90)
[2022-02-12] MEDS: metroNIDAZOLE 500MG/100ML 100 ML IV SCH ×2 (06:41→15:44)
[2022-02-12] MEDS: D5W/SOD CHL 0.45%/KCL 20MEQ 1,000 ML IV SCH (06:57)
[2022-02-12 09:00] VITALS: BP 160/112
[2022-02-12] MEDS: PANTOPRAZOLE 40 MG/10 ML VIAL INJ IV SCH (09:30)
[2022-02-12] MEDS: ENOXAPARIN SOD 40 MG/0.4 ML SYRINGE SC SCH (09:31)
[2022-02-12] MEDS: hydrALAZINE HCL 20 MG/ML VL IV PRN ×2 (09:37→15:45)
[2022-02-12] MEDS: ONDANSETRON HCL 4 MG/2 ML VIAL IV PRN ×2 (11:51→20:37)
[2022-02-12 13:09] VITALS: BP 143/92
[2022-02-12 16:55] VITALS: BP 162/101
[2022-02-12 17:31] VITALS: BP 146/93
[2022-02-12 22:00] VITALS: BP 162/94
[2022-02-13] MEDS: D5W/SOD CHL 0.45%/KCL 20MEQ 1,000 ML IV SCH ×4 (01:32→16:22)
[2022-02-13] MEDS: HYDROcodone-ACET 5/325MG TAB PO PRN ×4 (03:42→20:54)
[2022-02-13] MEDS: ONDANSETRON HCL 4 MG/2 ML VIAL IV PRN ×4 (04:41→20:53)
[2022-02-13] MEDS: PIPERACILLIN-TAZOB 3.375GM 100 ML IV SCH ×3 (06:01→17:12)
[2022-02-13] MEDS: ACCU-CHEK COMFORT CURVE STRIP VI SCH ×3 (06:02→17:12)
[2022-02-13 06:10] LABS: Calcium 8.1 mg/dL (8.5-10.1); Magnesium 1.8 mg/dL (1.6-2.6); Potassium 3.3 mmol/L (3.5-5.1)
[2022-02-13 06:12] LABS: BUN/Creatinine Ratio 4.4
[2022-02-13] MEDS: InsuLIN REG 1unit/0.01ml Soln (100units/ml) SC SCH ×3 (06:18→17:12)
[2022-02-13 09:24] VITALS: BP 173/105
[2022-02-13] MEDS: PANTOPRAZOLE 40 MG/10 ML VIAL INJ IV SCH (09:53)
[2022-02-13] MEDS: ENOXAPARIN SOD 40 MG/0.4 ML SYRINGE SC SCH (09:53)
[2022-02-13] MEDS ORDERED: POTASSIUM CHLORIDE 20 MEQ, LIDOCAINE 1% (LOCAL ANESTH.) 2 ML in SODIUM CHL 0.9% 100 ML IV ONE ×6 (11:30)
[2022-02-13 13:00] VITALS: BP 150/107
[2022-02-13] MEDS: HYDROmorphone HCL 2 MG/ML VL/or syr IV PRN ×2 (15:58→22:27)
[2022-02-13 17:03] VITALS: BP 151/105
[2022-02-13] MEDS: hydrALAZINE HCL 20 MG/ML VL IV PRN (17:59)
[2022-02-13] MEDS ORDERED: POTASSIUM CHL 20MEQ/100ML 100 ML IV ONE (18:45)
[2022-02-13 18:50] VITALS: BP 145/86
[2022-02-13 22:00] VITALS: BP 133/84
[2022-02-14] MEDS: InsuLIN REG 1unit/0.01ml Soln (100units/ml) SC SCH ×5 (00:56→23:15)
[2022-02-14] MEDS: ACCU-CHEK COMFORT CURVE STRIP VI SCH ×5 (01:01→23:09)
[2022-02-14] MEDS: PIPERACILLIN-TAZOB 3.375GM 100 ML IV SCH ×5 (01:03→23:09)
[2022-02-14] MEDS: D5W/SOD CHL 0.45%/KCL 20MEQ 1,000 ML IV SCH ×3 (01:05→16:22)
[2022-02-14 05:00] VITALS: BP 144/94
[2022-02-14] MEDS: HYDROmorphone HCL 2 MG/ML VL/or syr IV PRN ×2 (05:32→20:56)
[2022-02-14] MEDS: ONDANSETRON HCL 4 MG/2 ML VIAL IV PRN ×2 (05:32→20:57)
[2022-02-14 09:00] VITALS: BP 148/97
[2022-02-14] MEDS: PANTOPRAZOLE 40 MG/10 ML VIAL INJ IV SCH (09:25)
[2022-02-14] MEDS: ENOXAPARIN SOD 40 MG/0.4 ML SYRINGE SC SCH (09:26)
[2022-02-14] MEDS: HYDROcodone-ACET 5/325MG TAB PO PRN ×2 (09:50→15:51)
[2022-02-14] MEDS ORDERED: SODIUM FERR GLUC 62.5MG/5ML 125 MG in SODIUM CHL 0.9% 100 ML IV SCH (12:00)
[2022-02-14 13:00] VITALS: BP 147/111
[2022-02-14 16:43] VITALS: BP 154/106
[2022-02-14 23:24] VITALS: BP 150/99
[2022-02-15] MEDS: D5W/SOD CHL 0.45%/KCL 20MEQ 1,000 ML IV SCH (02:36)
[2022-02-15] MEDS: HYDROcodone-ACET 5/325MG TAB PO PRN ×2 (03:05→16:31)
[2022-02-15 05:43] VITALS: BP 94/41
[2022-02-15] MEDS: InsuLIN REG 1unit/0.01ml Soln (100units/ml) SC SCH ×2 (05:55→12:37)
[2022-02-15] MEDS: ACCU-CHEK COMFORT CURVE STRIP VI SCH ×2 (06:04→12:37)
[2022-02-15] MEDS: PIPERACILLIN-TAZOB 3.375GM 100 ML IV SCH ×2 (06:04→14:59)
[2022-02-15] MEDS: HYDROmorphone HCL 2 MG/ML VL/or syr IV PRN (07:17)
[2022-02-15] MEDS: ONDANSETRON HCL 4 MG/2 ML VIAL IV PRN (07:18)
[2022-02-15 08:00] LABS: Basophils # (auto) 0 10 ^3/uL (0-0.2); Basophils % (auto) 0.7 % (0.0-2.0); Eosinophils # (auto) 0.1 10 ^3/uL (0-0.8); Eosinophils % (auto) 1.2 % (0.0-7.0); Hematocrit 36.6 % (36.0-46.0); Lymphocytes # (auto) 1.6 10 ^3/uL (0.4-5.4); Lymphocytes % (auto) 24.1 % (10.0-50.0); Mean Corpuscular Hemoglobin 27.9 pg (28.0-32.0); Mean Corpuscular Hgb Conc. 32.9 g/dL (32.0-36.0); Mean Corpuscular Volume 84.8 fL (80.0-100.0); Monocytes # (auto) 0.4 10 ^3/uL (0-1.3); Monocytes % (auto) 6.3 % (0.0-12.0); Neutrophils # (auto) 4.4 10 ^3/uL (1.6-8.6); Neutrophils % (auto) 67.7 % (37.0-80.0); Red Blood Cells 4.32 10^6/uL (4.0-5.20); Red Cell Distribution Width 14.2 % (11.8-14.3); White Blood Cell 6.5 10^3/uL (4.4-10.8)
[2022-02-15 08:06] LABS: Calcium 8.8 mg/dL (8.5-10.1); Magnesium 1.8 mg/dL (1.6-2.6); Potassium 3.6 mmol/L (3.5-5.1)
[2022-02-15 08:08] LABS: BUN/Creatinine Ratio 3.8
[2022-02-15 09:24] VITALS: BP 151/96
[2022-02-15] MEDS: PANTOPRAZOLE 40 MG/10 ML VIAL INJ IV SCH (10:28)
[2022-02-15] MEDS: ENOXAPARIN SOD 40 MG/0.4 ML SYRINGE SC SCH (10:29)
[2022-02-15 13:00] VITALS: BP 174/116
[2022-02-15 16:19] VITALS: BP 151/107
== END 2022-02-15 18:00 | disposition home or self-care (01) | DRG 224 ==
LOC: EDBD 05:18 → ER 05:18 → OVERFLOW 11:44 → WEST WING 15:19 → DOU IN ICU 21:35 → ICU CENTRL 21:48 → ICU WEST 02-05 13:08 → TELE-CENTR 02-08 20:16
PROVIDERS: ADMIT Registered Nurse; ATTEND Internal Medicine
PROC: 0DN80ZZ Release Small Intestine, Open Approach (ICD-10-PCS; 2022-02-05)
PROC: 0UB60ZZ Excision of Left Fallopian Tube, Open Approach (ICD-10-PCS; 2022-02-05)
PROC: 0DTJ0ZZ Resection of Appendix, Open Approach (ICD-10-PCS; principal; 2022-02-05 12:41)
DX: K56.51 Intestinal adhesions [bands], with partial obstruction (principal); E11.10 Type 2 diabetes mellitus with ketoacidosis without coma; E88.09 Other disorders of plasma-protein metabolism, not elsewhere classified; Z68.33 Body mass index [BMI] 33.0-33.9, adult; K37 Unspecified appendicitis; F15.90 Other stimulant use, unspecified, uncomplicated; Z20.822 Contact with and (suspected) exposure to COVID-19; N39.0 Urinary tract infection, site not specified; N70.93 Salpingitis and oophoritis, unspecified; I10 Essential (primary) hypertension; E66.01 Morbid (severe) obesity due to excess calories; E83.42 Hypomagnesemia; E87.6 Hypokalemia; Z90.49 Acquired absence of other specified parts of digestive tract; Z79.4 Long term (current) use of insulin; Z98.891 History of uterine scar from previous surgery
CPT/HCPCS: 36415; 36600; 71045; 74018; 74177; 74250; 80048; 80053; 80061; 81001; 81025; 82010; 82150; 82805; 82962; 83036; 83690; 83735; 83930; 84100; 84702; 85025; 85610; 85730; 86850; 86900; 86901; 87070; 87075; 87076; 87077; 87081; 87086; 87205; 96365; 96366; 96367; 96368; 96375; 97110; 97116; 97163; 97530; 99291; C9113; G0378; J0171; J0330; J0690; J0696; J1100; J1815; J2001; J2250; J2405; J2543; J3480; J3490

== ENCOUNTER 2022-10-20 17:32 | Inpatient (IN) | payer MEDICAID ==
[~2022-10-20] VITALS: Ht 167.6 cm; Wt 96.5 kg
[~2022-10-20 17:32] MED LIST changes: +AMOX-277 PO; +BLOO1KIT60 XX; +HYDR1TAB97 PO; +INSLANTI SC; +ONDA-144 PO; -SULF400T11 PO
[2022-10-20] MEDS ORDERED: SODIUM CHLORIDE 0.9% 1,000 ML IV ONE (18:15)
[2022-10-20 18:29] LABS: Basophils # (auto) 0 10 ^3/uL (0-0.2); Eosinophils # (auto) 0 10 ^3/uL (0-0.8); Mean Corpuscular Hemoglobin 26.5 pg (28.0-32.0); Monocytes # (auto) 0.4 10 ^3/uL (0-1.3); Neutrophils # (auto) 7.7 10 ^3/uL (1.6-8.6)
[2022-10-20 18:31] LABS: Basophils % (auto) 0.4 % (0.0-2.0); Hematocrit 38.4 % (36.0-46.0); Hemoglobin 12.7 g/dL (12.2-16.2); Lymphocytes % (auto) 10.7 % (10.0-50.0); Mean Corpuscular Volume 80.2 fL (80.0-100.0); Monocytes % (auto) 4.9 % (0.0-12.0); Nucleated Red Blood Cells % 0.4 %; Red Blood Cells 4.79 10^6/uL (4.0-5.20); Red Cell Distribution Width 16.3 % (11.8-14.3); White Blood Cell 9.1 10^3/uL (4.4-10.8)
[2022-10-20 18:44] LABS: Albumin 2.5 g/dL (3.4-5.0); Calcium 8.2 mg/dL (8.5-10.1); Potassium 3.5 mmol/L (3.5-5.1)
[2022-10-20 18:46] LABS: Bilirubin, Total 0.6 mg/dL (0.2-1.0); Total Protein 6.4 g/dL (6.4-8.2)
[2022-10-20 19:16] LABS: BUN/Creatinine Ratio 10.6 (10.0-20.0)
[2022-10-20 20:11] LABS: Urine Bacteria NONE SEEN /hpf (None Seen); Urine Blood 3+ /uL (Negative); Urine Specific Gravity 1.027 (1.001-1.035); Urine WBC 7 /hpf (0 - 5)
[2022-10-21] MEDS ORDERED: DEXTROSE (50%) 50ML SYRG IV PRN (00:30)
[2022-10-21] MEDS ORDERED: cloNIDine HCL 0.1 MG TAB PO PRN (00:30)
[2022-10-21] MEDS ORDERED: TEMAZEPAM 15 MG CAP PO PRN (00:30)
[2022-10-21] MEDS ORDERED: HYDROcodone-ACET 5/325MG TAB PO ONE (03:15)
[2022-10-21] MEDS: ACCU-CHEK COMFORT CURVE STRIP VI SCH ×6 (04:16→23:07)
[2022-10-21] MEDS: InsuLIN REG 1unit/0.01ml Soln (100units/ml) SC SCH ×6 (04:23→23:08)
[2022-10-21 09:31] LABS: Urine Bacteria FEW /hpf (None Seen); Urine Blood 3+ /uL (Negative); Urine Specific Gravity 1.032 (1.001-1.035); Urine WBC 11 /hpf (0 - 5)
[2022-10-21] MEDS: amLODIPine BESYLATE 5 MG TAB PO SCH (10:38)
[2022-10-21] MEDS: PANTOPRAZOLE 40 MG TAB PO SCH (10:39)
[2022-10-21] MEDS: ACETAMINOPHEN 325 MG TAB PO PRN ×2 (11:57→20:26)
[2022-10-21] MEDS ORDERED: cefTRIAXone 1GM/50ML D5W 50 ML IV ONE (13:00)
[2022-10-21] MEDS ORDERED: levoFLOXacin 500MG 100 ML IV ONE (13:00)
[2022-10-21 17:04] VITALS: BP 125/75
[2022-10-21] MEDS ORDERED: HYDR25TA5 PO (17:48)
[2022-10-21] MEDS ORDERED: LOSA-39 PO (17:48)
[2022-10-21] MEDS ORDERED: ATOR20TA50 PO (17:48)
[2022-10-21] MEDS ORDERED: AMLO-496 PO (17:48)
[2022-10-21 17:51] VITALS: BP 121/63
[2022-10-21 22:00] VITALS: BP 130/70
[2022-10-21] MEDS ORDERED: INSULIN LANTUS (GLARGINE) 1 /0.01ml (100units/ml) SC SCH (22:00)
[2022-10-21] MEDS: ATORVASTATIN 20 MG TAB PO SCH (23:00)
[2022-10-22] MEDS: ACCU-CHEK COMFORT CURVE STRIP VI SCH ×5 (04:39→22:48)
[2022-10-22] MEDS: InsuLIN REG 1unit/0.01ml Soln (100units/ml) SC SCH ×4 (04:40→17:29)
[2022-10-22 05:00] VITALS: BP 127/87
[2022-10-22 06:03] LABS: Basophils # (auto) 0 10 ^3/uL (0-0.2); Eosinophils # (auto) 0 10 ^3/uL (0-0.8); Eosinophils % (auto) 0.5 % (0.0-7.0); Lymphocytes # (auto) 1.4 10 ^3/uL (0.4-5.4); Nucleated Red Blood Cells % 0.1 %
[2022-10-22 06:05] LABS: BUN/Creatinine Ratio 17.8 (10.0-20.0); Calcium 8.5 mg/dL (8.5-10.1)
[2022-10-22] MEDS: ACETAMINOPHEN 325 MG TAB PO PRN ×3 (06:33→22:29)
[2022-10-22 06:59] LABS: Basophils % (auto) 0.5 % (0.0-2.0); Hematocrit 33.4 % (36.0-46.0); Hemoglobin 11.3 g/dL (12.2-16.2); Lymphocytes % (auto) 18.4 % (10.0-50.0); Mean Corpuscular Hemoglobin 26.4 pg (28.0-32.0); Mean Corpuscular Hgb Conc. 33.9 g/dL (32.0-36.0); Mean Corpuscular Volume 77.7 fL (80.0-100.0); Monocytes # (auto) 0.8 10 ^3/uL (0-1.3); Neutrophils # (auto) 5.4 10 ^3/uL (1.6-8.6); Neutrophils % (auto) 70.6 % (37.0-80.0); Red Cell Distribution Width 16.6 % (11.8-14.3); White Blood Cell 7.6 10^3/uL (4.4-10.8)
[2022-10-22 08:00] VITALS: BP 121/63
[2022-10-22] MEDS: levoFLOXacin 500MG 100 ML IV SCH (08:54)
[2022-10-22] MEDS: PANTOPRAZOLE 40 MG TAB PO SCH (08:59)
[2022-10-22 09:00] VITALS: BP 114/73
[2022-10-22] MEDS: amLODIPine BESYLATE 5 MG TAB PO SCH (09:00)
[2022-10-22] MEDS ORDERED: cefTRIAXone 1GM/50ML D5W 50 ML IV SCH (09:00)
[2022-10-22] MEDS ORDERED: POTASSIUM CHL 20 Meq TABLET PO ONE (10:00)
[2022-10-22] MEDS ORDERED: DEXTROSE (50%) 50ML SYRG IV PRN (10:00)
[2022-10-22 13:00] VITALS: BP 113/78
[2022-10-22 16:38] VITALS: BP 121/79
[2022-10-22 22:00] VITALS: BP 116/68
[2022-10-22] MEDS ORDERED: InsuLIN REG 1unit/0.01ml Soln (100units/ml) SC SCH (22:00)
[2022-10-22] MEDS ORDERED: INSULIN LANTUS (GLARGINE) 1 /0.01ml (100units/ml) SC SCH (22:00)
[2022-10-22] MEDS: ATORVASTATIN 20 MG TAB PO SCH (22:28)
[2022-10-23 05:00] VITALS: BP 136/90
[2022-10-23] MEDS: InsuLIN REG 1unit/0.01ml Soln (100units/ml) SC SCH ×2 (05:54→11:52)
[2022-10-23] MEDS: ACCU-CHEK COMFORT CURVE STRIP VI SCH ×2 (05:57→11:54)
[2022-10-23 06:42] LABS: Calcium 8.7 mg/dL (8.5-10.1); Potassium 3.5 mmol/L (3.5-5.1)
[2022-10-23 06:45] LABS: BUN/Creatinine Ratio 19.1 (10.0-20.0)
[2022-10-23 07:59] VITALS: BP 121/63
[2022-10-23 09:00] VITALS: BP 119/77
[2022-10-23] MEDS: levoFLOXacin 500MG 100 ML IV SCH (10:37)
[2022-10-23] MEDS: amLODIPine BESYLATE 5 MG TAB PO SCH (10:37)
[2022-10-23] MEDS ORDERED: LOSA-69 PO (10:49)
[2022-10-23] MEDS ORDERED: INSUINJ37 SC (10:49)
[2022-10-23] MEDS ORDERED: AMLO-496 PO (10:50)
[2022-10-23 12:13] VITALS: BP 119/77
== END 2022-10-23 14:00 | disposition home or self-care (01) | DRG 420 ==
LOC: ER 17:32 → EDBD 17:32 → OVERFLOW 10-21 00:32 → WEST WING 10-21 17:23
PROVIDERS: ADMIT Nurse Practitioner; ATTEND Internal Medicine
DX: E11.65 Type 2 diabetes mellitus with hyperglycemia (principal); J18.9 Pneumonia, unspecified organism; E87.1 Hypo-osmolality and hyponatremia; E66.9 Obesity, unspecified; N39.0 Urinary tract infection, site not specified; I10 Essential (primary) hypertension; Z79.4 Long term (current) use of insulin; Z68.34 Body mass index [BMI] 34.0-34.9, adult
CPT/HCPCS: 36415; 71045; 80048; 80053; 81001; 82010; 82962; 83036; 83880; 84484; 84702; 85025; 87086; 87088; 87186; 93005; G0378; J1815; J1956

== ENCOUNTER 2023-04-04 12:17 | Emergency (ER) | payer MEDICAID ==
[~2023-04-04] VITALS: Ht 170.2 cm; Wt 73.0 kg
[~2023-04-04 12:17] MED LIST changes: +AMLO1TAB23 PO; -AMOX-277 PO; +AMOX875T4 PO; +ATOR20TA50 PO; -GLIM1TAB PO; +INSUINJ37 SC; +LOSA50TA46 PO; -METF-371 PO; -OLME20TA53 PO; +SENN-208 PO; -SENN1TAB88 PO
[2023-04-04] MEDS ORDERED: THIAMINE 100mg/ml INJ (200mg/2ml VIAL) IV ONE (12:45)
[2023-04-04] MEDS ORDERED: SODIUM CHLORIDE 0.9% 1,000 ML IV ONE ×2 (12:45)
[2023-04-04 13:09] LABS: Basophils # (auto) 0.1 10 ^3/uL (0-0.2); Basophils % (auto) 1.5 % (0.0-2.0); Eosinophils # (auto) 0.1 10 ^3/uL (0-0.8); Eosinophils % (auto) 0.7 % (0.0-7.0); Hematocrit 39.9 % (36.0-46.0); Hemoglobin 13.8 g/dL (12.2-16.2); Lymphocytes # (auto) 1.8 10 ^3/uL (0.4-5.4); Lymphocytes % (auto) 25.8 % (10.0-50.0); Mean Corpuscular Hgb Conc. 34.6 g/dL (32.0-36.0); Mean Corpuscular Volume 80.9 fL (80.0-100.0); Monocytes # (auto) 0.6 10 ^3/uL (0-1.3); Neutrophils # (auto) 4.6 10 ^3/uL (1.6-8.6); Nucleated Red Blood Cells % 0.1 %; Red Blood Cells 4.93 10^6/uL (4.0-5.20); Red Cell Distribution Width 15.9 % (11.8-14.3); White Blood Cell 7.2 10^3/uL (4.4-10.8)
[2023-04-04 13:33] LABS: Alanine Aminotransferase 13 U/L (7-40); Albumin 4.4 g/dL (3.2-4.8); Alkaline Phosphatase 98 U/L (46-116); Anion Gap 14 (5-15); Aspartate Aminotransferase 10 U/L (13-40); Blood Alcohol < 3.0 mg/dL (<10); Blood Urea Nitrogen 16 mg/dL (9-23); Calcium 9.5 mg/dL (8.5-10.1); Carbon Dioxide 24 mmol/L (20-30); Chloride 101 mmol/L (98-107); Glucose 159 mg/dL (74-106); Sodium 139 mmol/L (136-145)
[2023-04-04 13:34] LABS: Bilirubin, Total 0.7 mg/dL (0.2-1.0); Total Protein 7.4 g/dL (5.7-8.2)
[2023-04-04 13:35] LABS: Potassium 2.9 mmol/L (3.5-5.1)
[2023-04-04 14:17] VITALS: PULSE 92; RESP 20; O2SAT 96
[2023-04-04] MEDS ORDERED: POTASSIUM EFFERVESENT TAB 25 MEQ PO ONE (14:30)
[2023-04-04] MEDS ORDERED: InsuLIN REG 1unit/0.01ml Soln (100units/ml) SC SCH ×2 (18:45→22:00)
[2023-04-04] MEDS ORDERED: DEXTROSE (50%) 50ML SYRG IV PRN (18:45)
[2023-04-04 20:30] VITALS: BP 122/85; PULSE 82; RESP 18; TEMP 98.5; O2SAT 99
[2023-04-04] MEDS ORDERED: ACETAMINOPHEN 500 MG TAB PO ONE (21:45)
[2023-04-04] MEDS ORDERED: ACCU-CHEK COMFORT CURVE STRIP VI SCH (22:00)
[2023-04-04 23:18] LABS: Chloride 103 mmol/L (98-107); Potassium 3.3 mmol/L (3.5-5.1)
[2023-04-04 23:19] LABS: Anion Gap 9 (5-15); Carbon Dioxide 22 mmol/L (20-30)
[2023-04-04 23:20] LABS: Calcium 9.4 mg/dL (8.7-10.4)
[2023-04-04 23:24] LABS: Glucose 177 mg/dL (74-106)
[2023-04-04 23:25] LABS: Blood Urea Nitrogen 6 mg/dL (9-23); Sodium 134 mmol/L (136-145)
== END 2023-04-05 01:26 | disposition home or self-care (01) ==
LOC: EDBD 12:17 → EEVIPCON 12:17 → ER 12:17
DX: E87.6 Hypokalemia (principal); E11.65 Type 2 diabetes mellitus with hyperglycemia; R45.851 Suicidal ideations; I10 Essential (primary) hypertension; F32.9 Major depressive disorder, single episode, unspecified; F15.10 Other stimulant abuse, uncomplicated; F12.10 Cannabis abuse, uncomplicated; F14.10 Cocaine abuse, uncomplicated; Z98.51 Tubal ligation status
CPT/HCPCS: 36415; 80048; 80053; 80320; 82962; 84484; 85025; 96361; 96372; 96374; 99285; J1815; J3411; J7030